=== PATIENT | male | born 1960 | race Caucasian/White ===

== ENCOUNTER 2024-01-16 03:23 | Inpatient (IN) | payer MEDICARE ==
[~2024-01-16] VITALS: Ht 182.9 cm; Wt 83.9 kg
[2024-01-16 03:49] LABS: BASOPHILS % (AUTO) 0.1 % (0.0-2.0); HEMATOCRIT 39 % (39-51); HEMOGLOBIN 13.3 g/dL (13.5-17.5); LYMPHOCYTES # (AUTO) 1.1 K/uL (0.8-4.8); LYMPHOCYTES % (AUTO) 23.2 % (20.0-44.0); MEAN CORPUSCULAR HEMOGLOBIN 29 PG (26.0-33.0); MEAN CORPUSCULAR HGB CONC 34 g/dl (31.0-36.0); MEAN CORPUSCULAR VOLUME 84 fL (80-96); MONOCYTES # (AUTO) 0.4 K/uL (0.1-1.30); MONOCYTES % (AUTO) 9.4 % (2.0-12.0); NEUTROPHILS # (AUTO) 3.2 K/uL (1.8-8.9); NEUTROPHILS % (AUTO) 67.3 % (43.0-81.0); PLATELET COUNT (AUTO) 209 K/uL (150-450); RED BLOOD CELL COUNT(AUTO) 4.66 MIL/uL (4.5-6.0); RED CELL DISTRIBUTION WIDTH 13.4 % (11.5-15.0); WHITE BLOOD COUNT (AUTO) 4.8 K/uL (4.3-11.0)
[2024-01-16 04:00] LABS: ALBUMIN 3.2 g/dL (3.4-5.0); BILIRUBIN,TOTAL 0.4 mg/dL (0.2-1.0); CALCIUM, SERUM 8.8 mg/dL (8.5-10.1); CREATININE 1.1 mg/dL (0.6-1.3); POTASSIUM 3.7 mmol/L (3.5-5.1); TOTAL PROTEIN, SERUM 6.3 g/dL (6.4-8.2)
[2024-01-16 04:01] LABS: PARTIAL THROMBOPLASTIN TIME 33.5 SEC (24.3-34.3)
[2024-01-16 04:20] LABS: INR 0.91 (0.91-1.10); PROTHROMBIN TIME 9.2 SECS (9.2-11.1)
[2024-01-16] MEDS ORDERED: IV D5W 1,000 ML IV PRN (04:30)
[2024-01-16] MEDS ORDERED: POTASSIUM CHLORIDE 20 MEQ POWDER PACKET NG SCH (04:30)
[2024-01-16] MEDS ORDERED: PHENYLEPHRINE 100 MG in IV NS 0.9% 240 ML IV PRN (05:00)
[2024-01-16] MEDS ORDERED: NOREPINEPHRINE 32 MG in IV NS 0.9% 218 ML IV PRN (05:00)
[2024-01-16] MEDS ORDERED: ENOXAPARIN SODIUM 40 MG/0.4 ML DISP.SYRIN SQ SCH (05:00)
[2024-01-16] MEDS ORDERED: VASOPRESSIN INJ 40 UNIT in IV NS 0.9% 38 ML IV PRN (05:00)
[2024-01-16] MEDS: AMIODARONE 150 MG in IV D5W 100 ML IV ONE (05:01)
[2024-01-16] MEDS: AMIODARONE 450 MG in IV D5W 241 ML IV PRN (05:02)
[2024-01-16 05:20] VITALS: BP 120/80
[2024-01-16] MEDS: POTASSIUM CHLORIDE 20 MEQ TAB.PRT.SR PO SCH (05:20)
[2024-01-16] MEDS ORDERED: IBUP-2715 PO (05:25)
[2024-01-16] MEDS ORDERED: IBUP-51 PO (05:29)
[2024-01-16] MEDS ORDERED: NOREPINEPHRINE 8 MG in IV D5W 242 ML IV PRN (05:30)
[2024-01-16] MEDS ORDERED: IBUPROFEN 200 MG TABLET PO PRN (05:30)
[2024-01-16] MEDS ORDERED: POTASSIUM CL. PREMIX PERIPHER. 50 ML IV SCH ×2 (05:30→06:00)
[2024-01-16] MEDS ORDERED: VANCOMYCIN 1 GM in IV D5W 250 ML IV SCH (06:00)
[2024-01-16] MEDS ORDERED: Magnesium 1GM/D5W 100ML PREMIX 100 ML IV SCH ×4 (06:00→12:00)
== END 2024-01-16 09:21 | disposition home or self-care (01) | DRG 951 ==
LOC: ICU 03:23
PROVIDERS: ADMIT Internal Medicine; ATTEND Internal Medicine
DX: Z00.00 Encounter for general adult medical examination without abnormal findings (principal)
CPT/HCPCS: 36415; 71045-TC; 80053-TC; 85025-TC; 85730-TC; G0378; J0282; J3370; J7050; J7060